=== PATIENT | female | born 1995 | race Caucasian/White ===

== ENCOUNTER 2021-10-26 17:11 | Emergency (ER) | payer OTHER ==
[2021-10-26 17:58] LABS: BASOPHIL 0.6 % (0-2); EOSINOPHIL 2.4 % (0-5); HCT 37.5 % (37.0-47.0); HGB 12.6 g/dl (12.5-16.0); LYMPHOCYTE 37.3 % (15-48); MCH 28.5 pg (25.0-31.0); MCHC 33.6 g/dL (32.0-36.0); MCV 84.8 fL (78.0-100.0); MONOCYTE 7.6 % (0-12); MPV 10.4 fL (6.0-9.5); NEUTROPHIL 51.9 % (41-80); NRBC 0; PLT 258 K/uL (150-400); RBC 4.42 M/uL (4.20-5.40); WBC 6.3 K/uL (4.0-10.5)
[2021-10-26 18:17] LABS: BILIRUBIN NEGATIVE (NEGATIVE); BLOOD NEGATIVE Ery/uL (NEGATIVE); CLARITY CLEAR (CLEAR); COLOR YELLOW (YELLOW); GLUCOSE (U) NORMAL (NORMAL); LEUKOCYTES NEGATIVE Leu/uL (NEGATIVE); NITRITE NEGATIVE (NEGATIVE); PROTEIN NEGATIVE (NEGATIVE); UROBILINOGEN 0.2 mg/dL (0.2-1.0)
[2021-10-26 18:26] LABS: ALBUMIN 3.6 g/dL (3.4-5.0); BILIRUBIN - TOTAL 0.2 mg/dL (0.2-1.0); BUN/CREAT RATIO (CALC) 15.5 RATIO; CREATININE 0.84 mg/dL (0.51-0.95); GLOBULIN (CALCULATION) 3.6 g/dL; TOTAL PROTEIN 7.2 g/dL (6.4-8.2)
[2021-10-26] MEDS ORDERED: IBUPROFEN800 MG PO (21:05)
[2021-10-26] MEDS ORDERED: ONDANSETRON ODT4 MG PO (21:05)
== END 2021-10-26 21:33 | disposition home or self-care (01) ==
LOC: FER 17:11
PROVIDERS: Physician Assistant
DX: N83.201 Unspecified ovarian cyst, right side (principal)
CPT/HCPCS: 36415; 76856; 80053; 81003; 85025; J1885; J2405; J7030